=== PATIENT | female | born 1995 | race Two or more races ===

== ENCOUNTER 2019-03-14 21:20 | Emergency (ER) | payer BC ==
[~2019-03-14] VITALS: Ht 157.5 cm; Wt 53.1 kg
[2019-03-14 21:47] LABS: BILIRUBIN,URINE NEGATIVE (NEG); CLARITY,URINE CLEAR; COLOR,URINE YELLOW; NITRITE,URINE NEGATIVE (NEG); PROTEIN,URINE NEGATIVE (NEG-TRACE); UROBILINOGEN,URINE 0.2 mg/dL (0.2 mg/dL)
--- NOTE | 2019-03-14 21:50 | PHYS DOC ---
Past Medical History Past Medical History: No Pertinent History Past Surgical History: No Surgical History Alcohol Use: None Drug Use: None Adult General Chief Complaint Chief Complaint: VAGINAL BLEEDING HPI HPI Patient is a 23 year old Female who presents with today went to urinate and she saw a drop of urine in the toilet. She denies any clots. She denies any abdominal pain, vomiting, diarrhea, numbness or tingling, fever, back pain, dizziness, headache, visual changes, weakness or dysuria. 0 out of 10 pain. Review of Systems Review of Systems : vaginal bleeding. Denies dysuria or hematuria [] All other systems were reviewed and found to be within normal limits, except as documented in this note. Current Medications Current Medications Current Medications Medications (Trade) Dose Ordered Sig/Art Start Time Stop Time Status Last Admin Dose Admin Sodium Chloride 1,000 ml @ 1,000 mls/hr Q1H 03/14/19 22:00 03/14/19 22:59 03/14/19 22:12 1,000 MLS/HR Allergies Allergies Allergies Coded Allergies Type Severity Reaction Last Updated Verified No Known Drug Allergies 03/14/19 No Physical Exam Physical Exam Constitutional: Well developed, well nourished, no acute distress, non-toxic appearance. [] HENT: Normocephalic, atraumatic, bilateral external ears normal, oropharynx moist, no oral exudates, nose normal. [] Eyes: PERRLA, EOMI, conjunctiva normal, no discharge. [] Neck: Normal range of motion, no tenderness, supple, no stridor. [] Cardiovascular:Heart rate regular rhythm, no murmur [] Lungs & Thorax: Bilateral breath sounds clear to auscultation [] Abdomen: Bowel sounds normal, soft, no tenderness, no masses, no pulsatile masses. [] Skin: Warm, dry, no erythema, no rash. [] Back: No tenderness, no CVA tenderness. [] Extremities: No tenderness, no cyanosis, no clubbing, ROM intact, no edema. [] Neurologic: Alert and oriented X 3, normal motor function, normal sensory function, no focal deficits noted. [] Psychologic: Affect normal, judgement normal, mood normal. Normal Physical Exam[] Current Patient Data Vital Signs Vital Signs Date Time Temp Pulse Resp B/P (MAP) Pulse Ox O2 Delivery O2 Flow Rate FiO2 03/14/19 21:28 98.4 99 16 125/76 (92) 98 Room Air 98.4 Lab Values Laboratory Tests Test 03/14/19 21:27 03/14/19 21:29 03/14/19 22:14 Urine Collection Type Unknown Urine Color Yellow Urine Clarity Clear Urine pH 6.0 Urine Specific [place] 1.010 Urine Protein Negative mg/dL (NEG-TRACE) Urine Glucose (UA) Negative mg/dL (NEG) Urine Ketones (Stick) Negative mg/dL (NEG) Urine Blood Moderate (NEG) Urine Nitrite Negative (NEG) Urine Bilirubin Negative (NEG) Urine Urobilinogen Dipstick 0.2 mg/dL (0.2 mg/dL) Urine Leukocyte Esterase Negative (NEG) Urine RBC 0 /HPF (0-2) Urine WBC Occ /HPF (0-4) Urine Squamous Epithelial Cells Mod /LPF Urine Bacteria 0 /HPF (0-FEW) Urine Mucus Mod /LPF POC Urine HCG, Qualitative Hcg positive (Negative) White Blood Count 11.9 x10^3/uL (4.0-11.0) H Red Blood Count 4.20 x10^6/uL (3.50-5.40) Hemoglobin 12.3 g/dL (12.0-15.5) Hematocrit 36.3 % (36.0-47.0) Mean Corpuscular Volume 86 fL (79-100) Mean Corpuscular Hemoglobin 29 pg (25-35) Mean Corpuscular Hemoglobin Concent 34 g/dL (31-37) Red Cell Distribution Width 12.8 % (11.5-14.5) Platelet Count 366 x10^3/uL (140-400) Neutrophils (%) (Auto) 69 % (31-73) Lymphocytes (%) (Auto) 19 % (24-48) L Monocytes (%) (Auto) 10 % (0-9) H Eosinophils (%) (Auto) 1 % (0-3) Basophils (%) (Auto) 1 % (0-3) Neutrophils # (Auto) 8.2 x10^3/uL (1.8-7.7) H Lymphocytes # (Auto) 2.3 x10^3/uL (1.0-4.8) Monocytes # (Auto) 1.1 x10^3/uL (0.0-1.1) Eosinophils # (Auto) 0.1 x10^3/uL (0.0-0.7) Basophils # (Auto) 0.1 x10^3/uL (0.0-0.2) Sodium Level 136 mmol/L (136-145) Potassium Level 3.6 mmol/L (3.5-5.1) Chloride Level 103 mmol/L (98-107) Carbon Dioxide Level 25 mmol/L (21-32) Anion Gap 8 (6-14) Blood Urea Nitrogen 4 mg/dL (7-20) L Creatinine 0.6 mg/dL (0.6-1.0) Estimated GFR (Cockcroft-Gault) 125.0 BUN/Creatinine Ratio 7 (6-20) Glucose Level 109 mg/dL (70-99) H Calcium Level 9.0 mg/dL (8.5-10.1) Total Bilirubin 0.3 mg/dL (0.2-1.0) Aspartate Amino Transferase (AST) 16 U/L (15-37) Alanine Aminotransferase (ALT) 19 U/L (14-59) Alkaline Phosphatase 56 U/L (46-116) Total Protein 7.3 g/dL (6.4-8.2) Albumin 3.7 g/dL (3.4-5.0) Albumin/Globulin Ratio 1.0 (1.0-1.7) Laboratory Tests 03/14/19 22:14 Laboratory Tests 03/14/19 22:14 EKG EKG [] Radiology/Procedures Radiology/Procedures [] Course & Med Decision Making Course & Med Decision Making Alert and oriented. Speaks in full clear sentences. Skin pink warm and dry. Vital within normal limits. Abdomen is soft and nontender. Afebrile. No extremity swelling. Lungs are clear to auscultation in all lobes. Denies blood in her underwear, having to use a pad, or on the toilet paper after wiping. I have reported the patient off to Dr Diana. US currently in the room. Dragon Disclaimer Dragon Disclaimer This electronic medical record was generated, in whole or in part, using a voice recognition dictation system. AYAN CHEN APRN Mar 14, 2019 21:50
[2019-03-14 21:56] LABS: BACTERIA,URINE 0 /HPF (0-FEW); RBC,URINE 0 /HPF (0-2); SQUAMOUS EPITHELIAL CELL,UR MOD /LPF; WBC,URINE OCC /HPF (0-4)
[2019-03-14] MEDS ORDERED: IV NORMAL SALINE 1000ML BAG 1,000 ML IV SCH (22:00)
[2019-03-14 22:22] LABS: BASO # 0.1 x10^3/uL (0.0-0.2); BASO % 1 % (0-3); EOS # 0.1 x10^3/uL (0.0-0.7); EOS % 1 % (0-3); HEMATOCRIT 36.3 % (36.0-47.0); HEMOGLOBIN 12.3 g/dL (12.0-15.5); LYMPH # 2.3 x10^3/uL (1.0-4.8); LYMPH % 19 % (24-48); MEAN CORPUSCULAR HEMOGLOBIN 29 pg (25-35); MEAN CORPUSCULAR HGB CONC 34 g/dL (31-37); MEAN CORPUSCULAR VOLUME 86 fL (79-100); MONO # 1.1 x10^3/uL (0.0-1.1); MONO % 10 % (0-9); NEUT # 8.2 x10^3/uL (1.8-7.7); NEUT % 69 % (31-73); PLATELET COUNT 366 x10^3/uL (140-400); RED CELL DISTRIBUTION WIDTH 12.8 % (11.5-14.5); WHITE BLOOD COUNT 11.9 x10^3/uL (4.0-11.0)
[2019-03-14 22:30] LABS: CREATININE 0.6 mg/dL (0.6-1.0); POTASSIUM 3.6 mmol/L (3.5-5.1)
[2019-03-14 22:37] LABS: ALBUMIN 3.7 g/dL (3.4-5.0); TOTAL BILIRUBIN 0.3 mg/dL (0.2-1.0); TOTAL PROTEIN 7.3 g/dL (6.4-8.2)
--- NOTE | 2019-03-14 23:33 | RAD ---
Examination: Obstetric ultrasound less than 14 weeks HISTORY: History of vaginal bleeding COMPARISON: None available FINDINGS: The uterus measures 8.3 x 6.5 x 5.7 cm. The right ovary measures 3.4 x 2.2 x 1.9 cm. The left ovary measures 2.8 1.0 x 1.6 cm. Intrauterine gestational sac identified. pole is identified with heart rate of 169 bpm. The crown-rump length measures 1.9 cm corresponding to 8 weeks and 4 days. Gestational age of 8 weeks and 4 days. Date of delivery by ultrasound is 10/20/2019. Given LMP is 01/11/2019. Clinical age is 8 weeks and 6 days with date of delivery by LMP 10/18/2019. IMPRESSION: Single living intrauterine with heart rate of 169 bpm. Electronically signed by: Prakash Richardson MD (03/14/2019 11:30 PM) [facility]
[2019-03-14 23:35] VITALS: BP 103/76
== END 2019-03-15 00:18 | disposition home or self-care (01) ==
LOC: ER 21:20
DX: O46.91 Antepartum hemorrhage, unspecified, first trimester (principal); Z3A.09 9 weeks gestation of pregnancy
CPT/HCPCS: 36415; 76801; 80053; 81001; 81025; 84702; 85025; 86850; 86900; 86901; 99285; J7030

== ENCOUNTER 2020-11-19 16:20 | Emergency (ER) | payer BC ==
[~2020-11-19] VITALS: Ht 152.4 cm; Wt 54.5 kg
--- NOTE | 2020-11-19 16:48 | PHYS DOC ---
Past Medical History Past Medical History: No Pertinent History (MARIAH OWEN Coco DAYTIME CAREGIVER) Past Surgical History: No Surgical History (MARIAH OWEN DAYTIME CAREGIVER) Smoking Status: Never Smoker Alcohol Use: None Drug Use: None (MARIAH OWEN DAYTIME CAREGIVER) General Adult HPI: HPI: Patient is a 25 year old female who presents the ED today complaining of cough for 3 days. Patient denies any fever. Denies any nasal congestion. States her throat is scratchy. (MARIAH OWEN DAYTIME CAREGIVER) Review of Systems: Review of Systems: Constitutional: Denies fever or chills. [] Eyes: Denies change in visual acuity. [] HENT: Reports scratchy throat. Denies nasal congestion Respiratory: Reports cough, denies shortness of breath. [] Cardiovascular: Denies chest pain or edema. [] GI: Denies abdominal pain, nausea, vomiting, bloody stools or diarrhea. [] : Denies dysuria. [] Musculoskeletal: Denies back pain or joint pain. [] Integument: Denies rash. [] Neurologic: Denies headache, focal weakness or sensory changes. [] Psychiatric: Denies depression or anxiety. [] (MARIAH OWEN Coco DAYTIME CAREGIVER) Heart Score: C/O Chest Pain: N/A Risk Factors: Risk Factors: DM, Current or recent (<one month) smoker, HTN, HLP, family history of CAD, obesity. Risk Scores: Score 0 - 3: 2.5% MACE over next 6 weeks - Discharge Home Score 4 - 6: 20.3% MACE over next 6 weeks - Admit for Clinical Observation Score 7 - 10: 72.7% MACE over next 6 weeks - Early Invasive Strategies (MARIAH OWEN Coco DAYTIME CAREGIVER) Allergies: Allergies: Allergies Coded Allergies Type Severity Reaction Last Updated Verified No Known Drug Allergies 03/14/19 No (MARIAH OWEN Coco DAYTIME CAREGIVER) Physical Exam: PE: Constitutional: Well developed, well nourished, no acute distress, non-toxic a ppearance. [] HENT: Normocephalic, atraumatic, bilateral external ears normal, oropharynx moist, no oral exudates, nose normal. [] Eyes: PERRLA, EOMI, conjunctiva normal, no discharge. [] Neck: Normal range of motion, no tenderness, supple, no stridor. [] Cardiovascular:Heart rate regular rhythm, no murmur [] Lungs & Thorax: Diminished breath sounds Abdomen: Bowel sounds normal, soft, no tenderness, no masses, no pulsatile masses. [] Skin: Warm, dry, no erythema, no rash. [] Back: No tenderness, no CVA tenderness. [] Extremities: No tenderness, no cyanosis, no clubbing, ROM intact, no edema. [] Neurologic: Alert and oriented X 3, normal motor function, normal sensory func tion, no focal deficits noted. [] Psychologic: Affect normal, judgement normal, mood normal. [] (MARIAH OWEN APRN) EKG: EKG: [] (MARIAH OWEN APRN) Radiology/Procedures: Radiology/Procedures: []PROCEDURE: CHEST AP ONLY XR CHEST 1V Clinical History: Reason: cough / Spl. Instructions: / History: Technique: AP view of the chest was obtained at 11/19/2020 5:29 PM. Comparison: None. Findings: The cardiomediastinal silhouette is normal. The pulmonary vasculature is normal. There is a patchy somewhat round density in the mid left lung. Impression: Left-sided opacity could be round pneumonia. Recommend follow-up chest x-ray to complete resolution. Electronically signed by: Stuart Leon III, MD (11/19/2020 6:08 PM) [facility] DICTATED and SIGNED BY: STUART LEON III, MD DATE: 11/19/20 [id number] (MARIAH OWEN APRN) Course & Med Decision Making: Course & Med Decision Making Pertinent Labs and Imaging studies reviewed. (See chart for details) This is a 25-year-old female patient presented to the ED today complaining of cough for 3 days and a scratchy throat. Chest x-ray interpreted by radiologist was noted for left middle lobe pneumonia. O2 sats 98% on room air. Patient is afebrile. Discharged on Augmentin. Covid rapid test is negative. Provided return precautions and discharged in stable condition (MARIAH OWEN APRN) Course & Med Decision Making Patients Care and treatment plan provided by ER Nurse Practitioner. I was available for consult. Patient's chart reviewed. (ABDIFATAH AHUMADA DO) Hoda Disclaimer: Hoda Disclaimer: This electronic medical record was generated, in whole or in part, using a voice recognition dictation system. (MARIAH OWEN APRN) Departure Departure Impression: Primary Impression: Left upper lobe pneumonia Qualified Codes: J18.9 - Pneumonia, unspecified organism Disposition: HOME / SELF CARE / HOMELESS Condition: STABLE Referrals: NO PCP (PCP) follow up with your doctor in one week Patient Instructions: Pneumonia, Adult, [id number] Additional Instructions: You were evaluated in the emergency room, your rapid Covid test is negative. You have left middle lobe pneumonia. We will sent a prescription [facility] your antibiotics to [facility]. Ensure you take all the antibiotics to completion as directed. Take Tylenol or Motrin for pain or fever. Follow-up with your doctor in 1 week. Come back to the ED at any point symptoms worsen Scripts Amoxicillin/Potassium Clav (AUGMENTIN 875-125 TABLET) 1 Each Tablet 1 TAB PO BID for 7 Days, #14 TAB 0 Refills Prov: MARIAH OWEN APRN 11/19/20 MARIAH OWEN APRN Nov 19, 2020 16:48 ABDIFATAH AHUMADA DO Nov 20, 2020 18:26
[2020-11-19 16:59] LABS: BILIRUBIN,URINE NEGATIVE (NEG); CLARITY,URINE CLEAR; COLOR,URINE YELLOW; NITRITE,URINE NEGATIVE (NEG); PH,URINE 7.5 (<5.0-8.0); PROTEIN,URINE NEGATIVE (NEG-TRACE); UROBILINOGEN,URINE 0.2 mg/dL (0.2 mg/dL)
[2020-11-19 17:08] LABS: BACTERIA,URINE 0 /HPF (0-FEW); RBC,URINE 0 /HPF (0-2)
--- NOTE | 2020-11-19 18:10 | RAD ---
XR CHEST 1V Clinical History: Reason: cough / Spl. Instructions: / History: Technique: AP view of the chest was obtained at 11/19/2020 5:29 PM. Comparison: None. Findings: The cardiomediastinal silhouette is normal. The pulmonary vasculature is normal. There is a patchy so mewhat round density in the mid left lung. Impression: Left-sided opacity could be round pneumonia. Recommend follow-up chest x-ray to complete resolution. Electronically signed by: Chi Leon III, MD (11/19/2020 6:08 PM) [facility]
[2020-11-19] MEDS ORDERED: AMOX1TAB61 PO (18:37)
[2020-11-19 19:10] VITALS: BP 113/75
--- NOTE | 2020-11-21 10:39 | NUR ---
IP: Informed pt of negative covid test. Pt verbalized understanding.
== END 2020-11-19 19:10 | disposition home or self-care (01) ==
LOC: ER 16:20
DX: J18.9 Pneumonia, unspecified organism (principal); Z20.822 Contact with and (suspected) exposure to COVID-19
CPT/HCPCS: 71045; 81001; 81025; 87086; 87426; 99284; U0003; U0005